=== PATIENT | male | born 1960 | race Caucasian/White ===

== ENCOUNTER 2024-04-21 12:31 | Emergency (ER) | payer SELFPAY ==
[~2024-04-21] VITALS: Ht 162.6 cm; Wt 115.9 kg
[2024-04-21 12:43] LABS: BASO # 0.01 K/mm3 (0.02-0.10); EOS # 0.13 K/mm3 (0.04-0.40); EOS % 1.4 % (0.0-4.0); HEMATOCRIT 47.6 % (42.0-52.0); HEMOGLOBIN 16.4 g/dL (13.5-18.0); LYMPH# 3.17 K/mm3 (1.50-4.00); MEAN CELL VOLUME 91 fl (78-100); MEAN CORPUSCULAR HEMOGLOBIN 31 pg (27-31); MEAN CORPUSCULAR HGB CONC 35 g/dL (33-37); MEAN PLATELET VOLUME 9.5 fl (7.4-10.4); MONO # 0.69 K/mm3 (0.20-0.80); NEU # 5.34 K/mm3 (1.40-6.50); PLATELET COUNT 279 K/mm3 (130-400); RED BLOOD COUNT 5.24 M/mm3 (4.20-5.60); RED CELL DISTRIBUTION WIDTH 12.9 % (11.5-14.5); WHITE BLOOD COUNT 9.4 K/mm3 (4.8-10.8)
[2024-04-21] MEDS ORDERED: fentaNYL 100 MCG/2 ML VIAL IV ONE ×3 (12:45→14:30)
[2024-04-21] MEDS ORDERED: Tdap Vaccine 0.5 ML SYRINGE IM ONE (12:45)
[2024-04-21] MEDS ORDERED: Iohexol 300 - 100 ML VIAL IV ONE (13:45)
[2024-04-21 13:56] LABS: CALCIUM 9.2 mg/dL (8.3-10.5)
[2024-04-21 13:57] LABS: TOTAL PROTEIN 7.1 g/dL (6.2-8.1)
[2024-04-21 13:59] LABS: TOTAL BILIRUBIN 0.5 mg/dL (0.2-1.2)
[2024-04-21] MEDS ORDERED: Morphine 4 MG/ML VIAL IV ONE (15:00)
[2024-04-21] MEDS ORDERED: Ondansetron 4 MG/2 ML VIAL IV ONE (15:00)
[2024-04-21 15:25] VITALS: BP 147/74
== END 2024-04-21 15:12 | disposition short-term general hospital (02) ==
LOC: EDBD 12:31 → ED 12:31
PROVIDERS: Family Medicine
DX: S82.002A Unspecified fracture of left patella, initial encounter for closed fracture (principal); S22.42XA Multiple fractures of ribs, left side, initial encounter for closed fracture; S43.005A Unspecified dislocation of left shoulder joint, initial encounter; I10 Essential (primary) hypertension; Z79.899 Other long term (current) drug therapy; W17.89XA Other fall from one level to another, initial encounter; Y93.89 Activity, other specified
CPT/HCPCS: 90715; J2270; J2405; J3010; Q9967